=== PATIENT | male | born 1970 | race Caucasian/White ===

== ENCOUNTER → 2019-05-28 16:00 | Outpatient (BNVA) | payer MEDICARE, MEDICAID, SELFPAY | PROVIDERS: Family Provider Internal Medicine; PCP Internal Medicine; Visit Provider Internal Medicine | DX: E11.9 Type 2 diabetes mellitus without complications (principal); G62.9 Polyneuropathy, unspecified | CPT/HCPCS: 83036 ==

== ENCOUNTER → 2019-06-18 07:21 | Outpatient (BNVA) | payer MEDICARE, MEDICAID, SELFPAY | PROVIDERS: Family Provider Internal Medicine; PCP Internal Medicine; Visit Provider Nurse Practitioner | DX: F45.1 Undifferentiated somatoform disorder (principal); F70 Mild intellectual disabilities; G47.30 Sleep apnea, unspecified; F17.210 Nicotine dependence, cigarettes, uncomplicated | CPT/HCPCS: 99213 ==

== ENCOUNTER → 2019-09-23 07:31 | Outpatient (BNVA) | payer MEDICARE, MEDICAID, SELFPAY | PROVIDERS: Family Provider Internal Medicine; PCP Internal Medicine; Visit Provider Nurse Practitioner | DX: F70 Mild intellectual disabilities (principal); G47.30 Sleep apnea, unspecified; F45.1 Undifferentiated somatoform disorder | CPT/HCPCS: 99213 ==

== ENCOUNTER → 2019-09-30 08:55 | Outpatient (BNVA) | payer MEDICARE, MEDICAID, SELFPAY | PROVIDERS: Family Provider Internal Medicine; PCP Internal Medicine; Visit Provider Nurse Practitioner | DX: G43.909 Migraine, unspecified, not intractable, without status migrainosus (principal); G62.9 Polyneuropathy, unspecified; R20.0 Anesthesia of skin; R20.2 Paresthesia of skin; F17.210 Nicotine dependence, cigarettes, uncomplicated | CPT/HCPCS: 99213 ==

== ENCOUNTER → 2019-10-08 08:18 | Outpatient (BNVA) | payer MEDICARE, MEDICAID, SELFPAY | PROVIDERS: Family Provider Internal Medicine; PCP Internal Medicine; Visit Provider Specialist | DX: G62.9 Polyneuropathy, unspecified (principal); R20.0 Anesthesia of skin; R20.2 Paresthesia of skin; F17.210 Nicotine dependence, cigarettes, uncomplicated | CPT/HCPCS: 95909 ==

== ENCOUNTER → 2019-12-21 07:52 | Outpatient (BNVA) | payer MEDICARE, MEDICAID, SELFPAY | PROVIDERS: Family Provider Internal Medicine; PCP Internal Medicine; Visit Provider Nurse Practitioner | DX: F70 Mild intellectual disabilities (principal); F45.1 Undifferentiated somatoform disorder; G47.30 Sleep apnea, unspecified | CPT/HCPCS: 99213 ==

== ENCOUNTER → 2020-04-25 08:01 | Outpatient (BNVA) | payer MEDICARE, MEDICAID, SELFPAY | PROVIDERS: Family Provider Internal Medicine; PCP Internal Medicine; Visit Provider Nurse Practitioner | DX: F70 Mild intellectual disabilities (principal); F45.1 Undifferentiated somatoform disorder; G47.30 Sleep apnea, unspecified; F17.210 Nicotine dependence, cigarettes, uncomplicated | CPT/HCPCS: 99214 ==

== ENCOUNTER 2020-07-25 12:45 | Outpatient (CLI) | payer MEDICARE, MEDICAID, SELFPAY ==
--- NOTE | 2020-07-25 13:07 | MR_ITS ---
WS: [id number] MRI LUMBAR SPINE NONCONTRAST TECHNIQUE: Sagittal T1, T2 and STIR imaging. Axial T1 and T2 imaging. CLINICAL INFORMATION: THORACOLUMBAR/LUMBOSACRAL INTERVERTEBRAL DISC DISORDER COMPARISON: MRI FINDINGS: Mild lumbar curve. No acute compression. No high-grade central canal stenosis. L1-L2: Normal. L2-L3: No significant disc bulging. Mild facet arthropathy. Spinal canal and foramen are patent. L3-L4: Mild annular bulging with osteophytic ridging. Spinal canal and foramen are patent. Mild facet arthropathy. L4-L5: Mild annular bulging eccentric to the right. Mild right and no significant left foraminal narr owing. Mild facet arthropathy. Spinal canal is patent. Slight narrowing of the right subarticular rec ess. L5-S1: Tiny right pericentral protrusion. Slight contact of the right S1 nerve root without significa nt impingement. Foramen are patent. Mild facet arthropathy. Visualized pelvic bony structures: Normal. Paravertebral soft tissues: Normal. MR/MR lumbar spine wo con* [id number] IMPRESSION: 1. Mild lumbar curve. No acute compression. No high-grade central canal narrow ing. 2. Right eccentric disc bulging L4-5 with mild right L4-5 foraminal narrowing. Slight narrowing of the right subarticular recess. 3. Tiny shallow right pericentral protrusion L5-S1 slightly contacts the right S1 nerve roots. 4. Mild facet arthropathy L5-S1.
== END 2020-07-25 12:46 | disposition home or self-care (01) ==
PROVIDERS: PCP Internal Medicine; Visit Provider Internal Medicine
DX: M51.9 Unspecified thoracic, thoracolumbar and lumbosacral intervertebral disc disorder (principal); M47.817 Spondylosis without myelopathy or radiculopathy, lumbosacral region; M51.27 Other intervertebral disc displacement, lumbosacral region
CPT/HCPCS: 72148

== ENCOUNTER → 2020-11-07 16:00 | Outpatient (BNVA) | payer MEDICARE, MEDICAID, SELFPAY | PROVIDERS: PCP Internal Medicine; Visit Provider Internal Medicine | DX: E11.9 Type 2 diabetes mellitus without complications (principal); M51.9 Unspecified thoracic, thoracolumbar and lumbosacral intervertebral disc disorder; F17.210 Nicotine dependence, cigarettes, uncomplicated | CPT/HCPCS: 80053; 83036 ==

== ENCOUNTER → 2020-12-05 07:28 | Outpatient (BNVA) | payer MEDICARE, MEDICAID, SELFPAY | PROVIDERS: PCP Internal Medicine; Visit Provider Nurse Practitioner | DX: F45.1 Undifferentiated somatoform disorder (principal); F70 Mild intellectual disabilities; F17.210 Nicotine dependence, cigarettes, uncomplicated; G47.30 Sleep apnea, unspecified | CPT/HCPCS: 99214 ==

== ENCOUNTER → 2021-06-20 10:46 | Outpatient (BNVA) | payer MEDICARE, MEDICAID, SELFPAY | PROVIDERS: PCP Internal Medicine; Visit Provider Surgery | DX: L72.3 Sebaceous cyst (principal); L08.9 Local infection of the skin and subcutaneous tissue, unspecified; F17.210 Nicotine dependence, cigarettes, uncomplicated | CPT/HCPCS: 88304; 99213 ==

== ENCOUNTER → 2021-07-25 11:38 | Outpatient (BNVA) | payer MEDICARE, MEDICAID, SELFPAY | PROVIDERS: PCP Internal Medicine; Visit Provider Surgery | DX: Z09 Encounter for follow-up examination after completed treatment for conditions other than malignant neoplasm (principal) | CPT/HCPCS: 99213 ==

== ENCOUNTER 2021-10-10 10:23 | Outpatient (CLI) | payer MEDICARE, MEDICAID, SELFPAY ==
--- NOTE | 2021-10-10 10:32 | MR_ITS ---
WS: [id number] MRI CERVICAL SPINE NONCONTRAST TECHNIQUE: Sagittal T1, T2 and STIR imaging. Axial T2, gradient, and fiesta imaging. CLINICAL INFORMATION: SPINAL STENOSIS,CERVICAL REGION COMPARISON: MRI and CT FINDINGS: Straightening of the normal cervical lordosis. Cord signal is normal. No high-grade central canal liliana rowing. Slight anterolisthesis C7 on T1 similar to previous. C2-C3: Normal. C3-C4: Mild disc osteophytic ridging. Moderate LEFT and no significant RIGHT bony foraminal narrowing . Mild central canal stenosis. C4-C5: Disc osteophyte complex with endplate ridging. Moderate LEFT and no significant RIGHT bony for aminal narrowing. Mild facet arthropathy. C5-C6: Disc osteophytic ridging eccentric to the RIGHT. Moderate RIGHT and mild LEFT bony foraminal n arrowing. Moderate facet arthropathy. Mild central canal stenosis. C6-C7: Disc osteophytic ridging eccentric to the LEFT. Severe LEFT bony foraminal narrowing. Mild RIG HT bony foraminal narrowing. Spinal canal is patent. C7-T1: Grade 1 anterolisthesis. Mild LEFT and no significant RIGHT foraminal narrowing. Spinal canal is patent. Small retention cyst or polyp LEFT maxillary sinus measuring 10 mm. Visualized brain stem structures: Normal. Prevertebral soft tissues: Normal. MR/MR cervical spin wo con* [id number] IMPRESSION: 1. Straightening of the normal cervical lordosis with progressed spondylitic c hanges compared to 2016. 2. Mild central canal stenosis C3-C4 C4-C5 and C5-C6 due to disc osteophyte co mplex 3. Moderate LEFT C3-C4 bony foraminal narrowing. 4. Moderate LEFT C4-C5 bony foraminal narrowing. 5. Moderate RIGHT C5-C6 bony foraminal narrowing. 6. Severe LEFT C6-C7 bony foraminal narrowing.
--- NOTE | 2021-10-10 10:32 | XR_ITS ---
WS: [id number] Exam: XR cervical spine fl/ex [id number] Date/Time of Exam: 10/10/2021 10:35 AM Reason For Exam: SPINAL STENOSIS,CERVICAL REGION Comparison 01/10/2016. No fracture or dislocation. No significant flexion or extension instability. Degenerative disc narrow ing at C6-7 and C7-T1 with mild spondylosis. Normal paraspinal soft tissues. There is some straighten ing of the lower C-spine. XR/XR cervical spine fl/ex [id number] IMPRESSION: 1. No sign of flexion or extension instability. 2. Mild degenerative changes of the lower C-spine as detailed above.
== END 2021-10-10 10:24 | disposition home or self-care (01) ==
PROVIDERS: PCP Internal Medicine; Visit Provider Anesthesiology Pain Medicine
DX: M48.02 Spinal stenosis, cervical region (principal); M25.78 Osteophyte, vertebrae
CPT/HCPCS: 72040; 72141

== ENCOUNTER → 2021-10-11 16:21 | Outpatient (BNVA) | payer MEDICARE, MEDICAID, SELFPAY | PROVIDERS: PCP Internal Medicine; Visit Provider Internal Medicine | DX: E11.9 Type 2 diabetes mellitus without complications (principal); G47.30 Sleep apnea, unspecified; F17.210 Nicotine dependence, cigarettes, uncomplicated | CPT/HCPCS: 80053; 83036; 84443; 85025 ==

== ENCOUNTER → 2021-10-24 11:23 | Outpatient (BNVA) | payer MEDICARE, MEDICAID, SELFPAY | PROVIDERS: PCP Internal Medicine; Visit Provider Surgery | DX: Z51.89 Encounter for other specified aftercare (principal) | CPT/HCPCS: 99213 ==

== ENCOUNTER → 2021-10-26 10:16 | Outpatient (BNVA) | payer MEDICARE, MEDICAID, SELFPAY | PROVIDERS: PCP Internal Medicine; Referring Provider Anesthesiology Pain Medicine; Visit Provider Physician Assistant | DX: M47.22 Other spondylosis with radiculopathy, cervical region; M50.30 Other cervical disc degeneration, unspecified cervical region | CPT/HCPCS: 72040; 99203; 99204 ==

== ENCOUNTER → 2021-11-02 08:31 | Outpatient (BNVA) | payer MEDICARE, MEDICAID, SELFPAY | PROVIDERS: PCP Internal Medicine; Visit Provider Podiatrist Foot & Ankle Surgery | DX: L60.0 Ingrowing nail (principal); E11.42 Type 2 diabetes mellitus with diabetic polyneuropathy; L60.3 Nail dystrophy; M21.41 Flat foot [pes planus] (acquired), right foot; M21.42 Flat foot [pes planus] (acquired), left foot; M20.41 Other hammer toe(s) (acquired), right foot; M20.42 Other hammer toe(s) (acquired), left foot; Z79.84 Long term (current) use of oral hypoglycemic drugs; Z79.4 Long term (current) use of insulin | CPT/HCPCS: 99203; 99204 ==

== ENCOUNTER → 2021-11-22 09:23 | Outpatient (BNVA) | payer MEDICARE, MEDICAID, SELFPAY | PROVIDERS: PCP Internal Medicine; Visit Provider Anesthesiology Pain Medicine | DX: M47.22 Other spondylosis with radiculopathy, cervical region (principal); M50.30 Other cervical disc degeneration, unspecified cervical region; M47.812 Spondylosis without myelopathy or radiculopathy, cervical region; M79.601 Pain in right arm; M79.602 Pain in left arm; F17.210 Nicotine dependence, cigarettes, uncomplicated | CPT/HCPCS: 99204 ==

== ENCOUNTER → 2021-12-11 13:20 | Outpatient (BNVA) | payer MEDICARE, MEDICAID, SELFPAY | PROVIDERS: PCP Internal Medicine; Visit Provider Anesthesiology Pain Medicine | DX: M47.816 Spondylosis without myelopathy or radiculopathy, lumbar region (principal); M47.812 Spondylosis without myelopathy or radiculopathy, cervical region; F17.210 Nicotine dependence, cigarettes, uncomplicated | CPT/HCPCS: 64490; 64491; 64492; J3490 ==

== ENCOUNTER → 2021-12-25 12:57 | Outpatient (BNVA) | payer MEDICARE, MEDICAID, SELFPAY | PROVIDERS: PCP Internal Medicine; Visit Provider Anesthesiology Pain Medicine | DX: M47.812 Spondylosis without myelopathy or radiculopathy, cervical region (principal); F17.210 Nicotine dependence, cigarettes, uncomplicated | CPT/HCPCS: 64490; 64491; 64492; J3490 ==

== ENCOUNTER → 2022-01-09 10:49 | Outpatient (BNVA) | payer MEDICARE, MEDICAID, SELFPAY | PROVIDERS: PCP Internal Medicine; Visit Provider Anesthesiology Pain Medicine | DX: G89.29 Other chronic pain (principal); M54.50 Low back pain, unspecified; M47.22 Other spondylosis with radiculopathy, cervical region; M50.30 Other cervical disc degeneration, unspecified cervical region; M47.812 Spondylosis without myelopathy or radiculopathy, cervical region; M79.601 Pain in right arm; M79.602 Pain in left arm; F17.210 Nicotine dependence, cigarettes, uncomplicated | CPT/HCPCS: 99214 ==

== ENCOUNTER → 2022-02-26 14:14 | Outpatient (BNVA) | payer MEDICARE, MEDICAID, SELFPAY | PROVIDERS: PCP Internal Medicine; Visit Provider Anesthesiology Pain Medicine | DX: M47.812 Spondylosis without myelopathy or radiculopathy, cervical region (principal) | CPT/HCPCS: 64633; 64634; J1030 ==

== ENCOUNTER → 2022-03-21 09:34 | Outpatient (BNVA) | payer MEDICARE, MEDICAID, SELFPAY | PROVIDERS: PCP Internal Medicine; Visit Provider Anesthesiology Pain Medicine | DX: M47.22 Other spondylosis with radiculopathy, cervical region (principal); M50.30 Other cervical disc degeneration, unspecified cervical region; M47.812 Spondylosis without myelopathy or radiculopathy, cervical region; M79.601 Pain in right arm; M79.602 Pain in left arm | CPT/HCPCS: 99214 ==

== ENCOUNTER → 2022-04-23 13:02 | Outpatient (BNVA) | payer MEDICARE, MEDICAID, SELFPAY | PROVIDERS: PCP Internal Medicine; Visit Provider Anesthesiology Pain Medicine | DX: M54.12 Radiculopathy, cervical region (principal); M47.812 Spondylosis without myelopathy or radiculopathy, cervical region | CPT/HCPCS: 64633; 64634; J1030 ==

== ENCOUNTER → 2022-05-02 15:44 | Outpatient (BNVA) | payer MEDICARE, MEDICAID, SELFPAY | PROVIDERS: PCP Family Medicine; Visit Provider Family Medicine | DX: E11.9 Type 2 diabetes mellitus without complications (principal); G62.9 Polyneuropathy, unspecified; F32.9 Major depressive disorder, single episode, unspecified; F10.20 Alcohol dependence, uncomplicated; F17.200 Nicotine dependence, unspecified, uncomplicated; Z71.6 Tobacco abuse counseling; R03.0 Elevated blood-pressure reading, without diagnosis of hypertension | CPT/HCPCS: 80053; 83036; 85025 ==

== ENCOUNTER 2022-05-08 11:04 | Outpatient (CLI) | payer MEDICARE, MEDICAID, SELFPAY ==
[2022-05-08 12:03] LABS: Estmated Average Glucose 146; Hemoglobin A1C 6.7 % (4.0-6.0)
== END 2022-05-08 11:05 | disposition home or self-care (01) ==
LOC: LAB 11:08
PROVIDERS: PCP Family Medicine; Visit Provider Family Medicine
DX: E11.9 Type 2 diabetes mellitus without complications (principal); M47.22 Other spondylosis with radiculopathy, cervical region; M50.30 Other cervical disc degeneration, unspecified cervical region; M47.812 Spondylosis without myelopathy or radiculopathy, cervical region; M77.12 Lateral epicondylitis, left elbow
CPT/HCPCS: 36415; 83036; 99214

== ENCOUNTER → 2022-08-07 11:16 | Outpatient (BNVA) | payer MEDICARE, MEDICAID, SELFPAY | PROVIDERS: PCP Family Medicine; Visit Provider Anesthesiology Pain Medicine | DX: M51.9 Unspecified thoracic, thoracolumbar and lumbosacral intervertebral disc disorder (principal); M47.896 Other spondylosis, lumbar region; M54.9 Dorsalgia, unspecified; G89.29 Other chronic pain | CPT/HCPCS: 72110; 99214 ==

== ENCOUNTER → 2022-08-22 14:04 | Outpatient (BNVA) | payer MEDICARE, MEDICAID, SELFPAY | PROVIDERS: PCP Family Medicine; Visit Provider Anesthesiology Pain Medicine | DX: G89.29 Other chronic pain (principal); M47.816 Spondylosis without myelopathy or radiculopathy, lumbar region | CPT/HCPCS: 36416; 64493; 64494; 64495; 82962; J3490 ==

== ENCOUNTER → 2022-09-12 13:39 | Outpatient (BNVA) | payer MEDICARE, MEDICAID, SELFPAY | PROVIDERS: PCP Family Medicine; Visit Provider Anesthesiology Pain Medicine | DX: G89.29 Other chronic pain (principal); M47.816 Spondylosis without myelopathy or radiculopathy, lumbar region | CPT/HCPCS: 64493; 64494; 64495; J3490 ==

== ENCOUNTER → 2022-10-01 10:47 | Outpatient (BNVA) | payer MEDICARE, MEDICAID, SELFPAY | PROVIDERS: PCP Family Medicine; Visit Provider Anesthesiology Pain Medicine | DX: G89.29 Other chronic pain (principal); M48.061 Spinal stenosis, lumbar region without neurogenic claudication; M47.817 Spondylosis without myelopathy or radiculopathy, lumbosacral region | CPT/HCPCS: 99214 ==

== ENCOUNTER → 2022-11-15 10:24 | Outpatient (BNVA) | payer MEDICARE, MEDICAID, SELFPAY | PROVIDERS: PCP Family Medicine; Visit Provider Anesthesiology Pain Medicine | DX: G89.29 Other chronic pain; M54.50 Low back pain, unspecified | CPT/HCPCS: 99213 ==

== ENCOUNTER → 2023-01-30 15:12 | Outpatient (BNVA) | payer MEDICARE, MEDICAID, SELFPAY | PROVIDERS: PCP Family Medicine; Referring Provider Family Medicine; Visit Provider Surgery | DX: K61.0 Anal abscess (principal) | CPT/HCPCS: 99204; 99214 ==

== ENCOUNTER → 2023-03-20 13:02 | Outpatient (BNVA) | payer MEDICARE, MEDICAID, SELFPAY | PROVIDERS: PCP Family Medicine; Visit Provider Surgery | DX: K60.3 Anal fistula | CPT/HCPCS: 99214 ==

== ENCOUNTER → 2023-03-22 15:28 | Outpatient (BNVA) | payer MEDICARE, MEDICAID, SELFPAY | PROVIDERS: PCP Family Medicine; Visit Provider Family Medicine | DX: R21 Rash and other nonspecific skin eruption (principal); E11.9 Type 2 diabetes mellitus without complications | CPT/HCPCS: 80053; 83036; 85025 ==

== ENCOUNTER → 2023-03-27 09:10 | Outpatient (BNVA) | payer MEDICARE, MEDICAID, SELFPAY | PROVIDERS: PCP Family Medicine; Visit Provider Anesthesiology Pain Medicine | DX: M54.9 Dorsalgia, unspecified (principal); G89.29 Other chronic pain; M54.2 Cervicalgia | CPT/HCPCS: 99214 ==

== ENCOUNTER 2023-04-01 08:21 | Day surgery (SDC) | payer MEDICARE, MEDICAID, SELFPAY ==
[2023-04-01] VITALS (10 sets, daily range): BP systolic 125–171; BP diastolic 78–110; PULSE 78–99; RESP 16–18; TEMP 36.1–36.8; O2SAT 92–97; BMI 32.9
--- NOTE | 2023-04-01 09:03 | W.PM.OPSUD ---
Surgery/Procedure H&P Update DATE OF PROCEDURE: April 01, 2023 DATE H&P PERFORMED: 03/20/23 H&P UPDATE INFORMATION: I have reviewed H&P completed within last 30 days, I have examined patient prior to procedure and No changes to prior documentation PLANNED PROCEDURE: Operation Date: 04/01/23 10:05 Proposed Procedures p [id number] exam under anesth poss fistula K61.0(Not Applicable) - DO reed Simpson poss fistula(Not Applicable) - Sher Steen DO
[2023-04-01 09:06] LABS: Glucose Point of Care 158 mg/dL (70-110)
[2023-04-01] MEDS: sodium chloride 0.9% 1,000 ML 30 ML IV (09:11)
--- NOTE | 2023-04-01 10:07 | ANES.PREANE2 ---
Pre-Anesthetic Assessment Height/Weight: Height 1.96 m Weight 126 kg Temp Pulse Resp BP Pulse Ox O2 Del Method 98.2 F 88 16 133/91 96 Room Air 04/01/23 08:40 04/01/23 08:40 04/01/23 08:40 04/01/23 08:40 04/01/23 08:40 04/01/23 08:41 Operation Date: 04/01/23 10:05 Proposed Procedures p [id number] exam under anesth poss fistula K61.0(Not Applicable) - Sher Steen DO s poss fistula(Not Applicable) - Sher Steen DO Familial anesthetic complications: None Was Beta Sharif taken within 24 hours: Yes Was Clonidine taken within 24 hours: N/A Last intake: Intake Last Liquid Date 03/31/23 Last Liquid Time 21:00 Last Solid Date 03/31/23 Last Solid Time 20:00 Social Tobacco and No alcohol Exam alert, oriented x 3, clear to auscultation bilaterally and regular rate & rhythm Airway Mallampati: Class III Dentition: chipped and other (multiple missing) Pulmonary Sleep Apnea CV/HEM Hypertension Metabolic Diabetes Mellitus and Hyperlipidemia Anesthetic Plan ASA status: 3 Anesthesia: General Risk of > 500 ml blood loss (7ml/kg in children): No Medications/Allergies Home Medications Medication Instructions Recorded Confirmed Last Taken Type gabapentin 800 mg tablet 800 mg PO TID #300 tabs 01/18/22 03/29/23 03/31/23 Rx sumatriptan succinate 100 mg 100 mg PO ONCE PRN migraine 02/28/22 03/29/23 Unknown Rx tablet (Imitrex) headache #20 tabs pen needle, diabetic 31 gauge x #100 ea 05/10/22 03/27/23 Unknown Rx 5/32 Diabetic Shoes with 3 Pairs of #1 ea 05/31/22 03/27/23 Unknown Rx Inserts metformin 750 mg tablet,extended 2,250 mg (3 x 750 mg) PO DAILY 06/18/22 03/29/23 03/31/23 Rx release 24 hr #270 tabs amitriptyline 50 mg tablet 50 mg PO DAILY #90 tabs 02/15/23 03/29/23 03/31/23 Rx duloxetine 60 mg capsule,delayed 60 mg PO BID #180 caps 02/15/23 03/29/23 03/31/23 Rx release (Cymbalta) insulin degludec 200 unit/mL (3 40 unit (0.2 mL) SUBCUT QDAY #3 mL 02/19/23 03/29/23 03/31/23 Rx mL) subcutaneous pen (Tresiba FlexTouch U-200 insulin) propranolol 40 mg tablet 40 mg PO BID #60 tabs 03/15/23 03/29/23 03/31/23 Rx CPAP 14 setting #1 ea 03/21/23 03/27/23 Unknown Rx CPAP mask, tubing, supplies #1 ea 03/21/23 03/27/23 Unknown Rx fluconazole 150 mg tablet 150 mg PO DAILY #14 tabs 03/22/23 03/29/23 03/31/23 Rx hydrocortisone 1 % topical cream 1 applic topical TID PRN skin 03/22/23 03/29/23 03/30/23 Rx irritation #454 grams glipizide 10 mg tablet 10 mg PO DAILY #60 tabs 03/25/23 03/29/23 03/31/23 Rx rosuvastatin 10 mg tablet 10 mg PO QPM 03/29/23 03/29/23 03/31/23 History Allergies Allergy/AdvReac Type Severity Reaction Status Date / Time prednisone Allergy ALGY-Rash Verified 03/27/23 09:24 Current Medications Generic Name Dose Route Start Last Admin Trade Name Freq PRN Reason Stop Dose Admin Sodium Chloride 1,000 mls @ 30 mls/hr 04/01/23 08:30 04/01/23 09:11 Sodium Chloride 0.9% IV 04/02/23 08:29 30 mls/hr .Q24H GALILEA Administration PFSH Anesthesia Medical History Major depressive disorder, recurrent, mild Psychiatric care Chronic migraine Sleep apnea, unspecified Mild intellectual disabilities Undifferentiated somatoform disorder Diabetes mellitus Neuropathy Surgical History Status post epidural steroid injection History of removal of cyst History of colonoscopy with polypectomy 2016 Family History Father CAD (coronary artery disease) Mother Clotting disorder Other Chronic kidney disease (CKD) Dementia Diabetes Hyperlipidemia Hypertension Lung disease Psychiatric illness Denies family history of Anesthesia complication Bleeding disorder Cancer Stroke Social History Smoking and tobacco/nicotine status: current every day tobacco/nicotine user cigarettes Packs smoked per day: 1 [ Other cigarette details: 1 PPD, 3/4PPD on avg, 35PY] Alcohol intake: current Alcohol intake frequency: few times a week Alcohol type: beer Substance/Drug Use: never Lives independently: Yes Marital status: Single Number of children: 0 Current occupational status: disabled Current gender identity: Male Data Anesthesia Cardiac Studies: No Data to Display
[2023-04-01] MEDS: ceFAZolin 2,000 MG in sodium chloride 0.9% (plus) 50 ML 100 MG IV (10:36)
[2023-04-01] MEDS: lidocaine-epi 2% 20 mL INJ INJECTION (11:10)
[2023-04-01] MEDS: thrombin 5,000 unit SDV 5000 UNIT XX (11:15)
--- NOTE | 2023-04-01 11:28 | PM.OP ---
Operative Report Date of procedure: April 01, 2023 Pre-op diagnosis: Rectal abscess Perianal fistula Post-op diagnosis: same Procedure done: Exam under anesthesia Fistulotomy Implants: Thrombin-soaked Gelfoam into the anus Specimens removed/disposition: None Surgeon: Sher Steen DO Estimated blood loss (mL): 5 Complications: None apparent Brief History: This very pleasant 52-year-old gentleman with a history of perirectal abscess. A perirectal fistula was identified on physical exam after the perirectal abscess healed. Exam under esthesia with possible fistulotomy was indicated. Risks and benefits, including but limited to, scar, numbness, pain, bleeding, infection, damage to surrounding structures, incontinence of flatus and/or stool, recurrence, were explained to the patient. He was understanding the risks and wished to proceed. Procedure: Patient was on the operating room placed on the hospital bed in the supine position. General endotracheal intubation was achieved by department anesthesia. The patient was then put into the prone jackknife position on the OR table. A timeout was performed. All present were in agreement. The endoscope was placed into the anus after lubricating and there was a fistula opening in the left anterior position. I placed a lacrimal probe through the fistula opening and found the internal opening at the dentate line. The fistula did not go through the sphincter muscles. 2% lidocaine with epinephrine was used to anesthetize the anoderm overlying the lacrimal probe. Bovie was used and cut mode to cut down through the anal Derm down to the lacrimal probe. Electrocautery was then used for hemostasis. Pressure was held for 2 minutes and then thrombin-soaked Gelfoam was placed into the anus. A sterile bandage was applied. Patient tolerated procedure well.
[2023-04-01] MEDS: labetalol 5 mg/mL SDV 20mL 10 MG IVP (11:30)
--- NOTE | 2023-04-01 12:55 | ANE.PACU2 ---
Inpatient post-anesthesia follow up: Airway intact: Yes Vital signs: Temperature 97.9 F Pulse Rate 78 Respiratory Rate 16 Blood Pressure 134/78 Pulse Oximetry 96 Oxygen Delivery Me thod Room Air Oxygen Flow Rate 8 Fraction of Inspir ed Oxygen Hydration adequate: Yes Nausea and vomiting: No Pain level: 1 Mental status: Baseline
== END 2023-04-01 12:55 | disposition home or self-care (01) ==
PROVIDERS: PCP Family Medicine; Visit Provider Surgery
PROC: (CPT 46270; principal; 2023-04-01 09:55)
PROC: (CPT 46270; 2023-04-01 09:55)
DX: K61.1 Rectal abscess (principal); G47.30 Sleep apnea, unspecified; I10 Essential (primary) hypertension; E11.40 Type 2 diabetes mellitus with diabetic neuropathy, unspecified; Z79.4 Long term (current) use of insulin; E78.5 Hyperlipidemia, unspecified; Z79.84 Long term (current) use of oral hypoglycemic drugs; F17.210 Nicotine dependence, cigarettes, uncomplicated
CPT/HCPCS: 46270; 36416; 82962; J0330; J0690; J2405; J2704; J2710; J3010; J3490; J7030

== ENCOUNTER → 2023-04-17 13:18 | Outpatient (BNVA) | payer MEDICARE, MEDICAID, SELFPAY | PROVIDERS: PCP Family Medicine; Visit Provider Surgery | DX: K60.3 Anal fistula (principal) | CPT/HCPCS: 99024 ==

== ENCOUNTER → 2023-06-03 09:15 | Outpatient (BNVA) | payer MEDICARE, MEDICAID, SELFPAY | PROVIDERS: PCP Family Medicine; Visit Provider Anesthesiology Pain Medicine | DX: M54.2 Cervicalgia (principal); G89.29 Other chronic pain; M47.816 Spondylosis without myelopathy or radiculopathy, lumbar region | CPT/HCPCS: 99214 ==

== ENCOUNTER → 2023-06-21 15:49 | Outpatient (BNVA) | payer MEDICARE, MEDICAID, SELFPAY | PROVIDERS: PCP Family Medicine; Visit Provider Family Medicine | DX: I10 Essential (primary) hypertension (principal); E11.9 Type 2 diabetes mellitus without complications | CPT/HCPCS: 83036 ==

== ENCOUNTER → 2023-07-15 09:10 | Outpatient (BNVA) | payer MEDICARE, MEDICAID, SELFPAY | PROVIDERS: PCP Family Medicine; Visit Provider Anesthesiology Pain Medicine | DX: G89.29 Other chronic pain; M54.2 Cervicalgia; M47.816 Spondylosis without myelopathy or radiculopathy, lumbar region | CPT/HCPCS: 99214 ==

== ENCOUNTER → 2023-08-13 13:01 | Outpatient (BNVA) | payer MEDICARE, MEDICAID, SELFPAY | PROVIDERS: PCP Family Medicine; Visit Provider Anesthesiology Pain Medicine | DX: M47.816 Spondylosis without myelopathy or radiculopathy, lumbar region (principal); G89.29 Other chronic pain | CPT/HCPCS: 64493; 64494; 64495; J3490 ==

== ENCOUNTER → 2023-08-22 10:00 | Outpatient (BNVA) | payer MEDICARE, MEDICAID, SELFPAY | PROVIDERS: PCP Family Medicine; Visit Provider Anesthesiology Pain Medicine | DX: G89.29 Other chronic pain; M54.2 Cervicalgia; M47.816 Spondylosis without myelopathy or radiculopathy, lumbar region | CPT/HCPCS: 99214 ==

== ENCOUNTER → 2023-11-27 14:44 | Outpatient (BNVA) | payer MEDICARE, MEDICAID, SELFPAY | PROVIDERS: PCP Family Medicine; Referring Provider Family Medicine; Visit Provider Nurse Practitioner Family | DX: L57.8 Other skin changes due to chronic exposure to nonionizing radiation (principal); L81.4 Other melanin hyperpigmentation; L82.1 Other seborrheic keratosis; D23.71 Other benign neoplasm of skin of right lower limb, including hip; L91.8 Other hypertrophic disorders of the skin; L73.8 Other specified follicular disorders; D22.5 Melanocytic nevi of trunk | CPT/HCPCS: 17110; 99203 ==

== ENCOUNTER → 2024-04-01 10:40 | Outpatient (BNVA) | payer MEDICARE, MEDICAID, SELFPAY | PROVIDERS: PCP Family Medicine; Visit Provider Anesthesiology Pain Medicine | DX: G89.29 Other chronic pain; M54.2 Cervicalgia; M47.816 Spondylosis without myelopathy or radiculopathy, lumbar region | CPT/HCPCS: 99214 ==

== ENCOUNTER → 2024-04-16 14:19 | Outpatient (BNVA) | payer MEDICARE, MEDICAID, SELFPAY | PROVIDERS: PCP Family Medicine; Visit Provider Family Medicine | DX: E11.9 Type 2 diabetes mellitus without complications (principal); N40.0 Benign prostatic hyperplasia without lower urinary tract symptoms; F32.9 Major depressive disorder, single episode, unspecified; M54.9 Dorsalgia, unspecified; G89.29 Other chronic pain; I10 Essential (primary) hypertension | CPT/HCPCS: 80053; 83036; 84153; 85025 ==

== ENCOUNTER → 2024-04-28 08:40 | Outpatient (BNVA) | payer MEDICARE, MEDICAID, SELFPAY | PROVIDERS: PCP Family Medicine; Visit Provider Anesthesiology Pain Medicine | DX: M47.816 Spondylosis without myelopathy or radiculopathy, lumbar region (principal); M79.18 Myalgia, other site; G89.29 Other chronic pain; M54.2 Cervicalgia | CPT/HCPCS: 20553; 99214; J1010; J3490 ==

== ENCOUNTER → 2024-05-18 08:49 | Outpatient (BNVA) | payer MEDICARE, MEDICAID, SELFPAY | PROVIDERS: PCP Family Medicine; Visit Provider Surgery | DX: K21.9 Gastro-esophageal reflux disease without esophagitis (principal); Z86.0100 Personal history of colon polyps, unspecified; Z87.11 Personal history of peptic ulcer disease; M47.816 Spondylosis without myelopathy or radiculopathy, lumbar region; G89.29 Other chronic pain; M54.2 Cervicalgia | CPT/HCPCS: 72110; 99214 ==

== ENCOUNTER → 2024-07-06 10:52 | Outpatient (BNVA) | payer MEDICARE, MEDICAID, OTHER, SELFPAY | PROVIDERS: PCP Family Medicine; Visit Provider Anesthesiology Pain Medicine | DX: M79.18 Myalgia, other site (principal); M54.9 Dorsalgia, unspecified; G89.29 Other chronic pain; M54.2 Cervicalgia; M47.816 Spondylosis without myelopathy or radiculopathy, lumbar region; F17.210 Nicotine dependence, cigarettes, uncomplicated | CPT/HCPCS: 20553; 99214; J1010; J3490 ==

== ENCOUNTER → 2024-08-05 14:26 | Outpatient (BNVA) | payer MEDICARE, MEDICAID, SELFPAY | PROVIDERS: PCP Family Medicine; Visit Provider Anesthesiology Pain Medicine | DX: M47.816 Spondylosis without myelopathy or radiculopathy, lumbar region (principal); M54.9 Dorsalgia, unspecified; G89.29 Other chronic pain; E11.9 Type 2 diabetes mellitus without complications; Z01.818 Encounter for other preprocedural examination | CPT/HCPCS: 36416; 64635; 64636; 82962; J9999 ==

== ENCOUNTER → 2024-08-25 14:17 | Outpatient (BNVA) | payer MEDICARE, MEDICAID, SELFPAY | PROVIDERS: PCP Family Medicine; Visit Provider Anesthesiology Pain Medicine | DX: M47.816 Spondylosis without myelopathy or radiculopathy, lumbar region (principal); Z01.818 Encounter for other preprocedural examination; E11.9 Type 2 diabetes mellitus without complications; M54.9 Dorsalgia, unspecified; G89.29 Other chronic pain | CPT/HCPCS: 36416; 64635; 64636; 82962; J1100; J9999 ==

== ENCOUNTER → 2024-09-15 10:56 | Outpatient (BNVA) | payer MEDICARE, MEDICAID, SELFPAY | PROVIDERS: PCP Family Medicine; Visit Provider Anesthesiology Pain Medicine | DX: M54.9 Dorsalgia, unspecified (principal); G89.29 Other chronic pain; M54.2 Cervicalgia; M47.816 Spondylosis without myelopathy or radiculopathy, lumbar region | CPT/HCPCS: 99214 ==

== ENCOUNTER → 2024-10-08 13:01 | Outpatient (BNVA) | payer MEDICARE, MEDICAID, SELFPAY | PROVIDERS: PCP Family Medicine; Visit Provider Student in an Organized Health Care Education/Training Program | DX: K60.30 Anal fistula, unspecified (principal); R12 Heartburn | CPT/HCPCS: 99204 ==

== ENCOUNTER 2024-10-28 09:31 | Day surgery (SDC) | payer MEDICARE, MEDICAID, SELFPAY ==
[2024-10-28] VITALS (10 sets, daily range): BP systolic 108–151; BP diastolic 66–99; PULSE 89–100; RESP 16–19; TEMP 36.2–36.9; O2SAT 91–96; BMI 31.8
--- NOTE | 2024-10-28 09:29 | W.PM.OPSUD ---
Surgery/Procedure H&P Update DATE OF PROCEDURE: October 28, 2024 DATE H&P PERFORMED: 10/08/24 H&P UPDATE INFORMATION: I have reviewed H&P completed within last 30 days, I have examined patient prior to procedure and No changes to prior documentation PLANNED PROCEDURE: Operation Date: 10/28/24 12:05 Proposed Procedures p Rectal Exam Under Anesthesia 36304 [id number] 00165 K60.3(Not Applicable) - Bill Hdez MD s POSSIBLE Incision And Drainage I&D(Not Applicable) - Bill Hdez MD s POSSIBLE Seton Placement(Not Applicable) - Bill Hdez MD
--- NOTE | 2024-10-28 09:42 | ANES.PREANE2 ---
Pre-Anesthetic Assessment Height/Weight: Height 6 ft 6 in Preop Diagnosis: Rectal fistula Operation Date: 10/28/24 12:05 Proposed Procedures p Rectal Exam Under Anesthesia 11138 [id number] 09279 K60.3(Not Applicable) - Bill Hdez MD s POSSIBLE Incision And Drainage I&D(Not Applicable) - Bill Hdez MD s POSSIBLE Seton Placement(Not Applicable) - Bill Hdez MD Was Beta Sharif taken within 24 hours: Yes Was Clonidine taken within 24 hours: N/A Social Alcohol and Tobacco Patient states that he drinks at least 15 beers a day on the week Exam alert, oriented x 3, clear to auscultation bilaterally and regular rate & rhythm Airway Submandibular: within normal limits Cervical ROM: within normal limits Mallampati: Class II Comments: Comments: No upper teeth, few bottom teeth. Denies any loose Anesthetic Plan ASA status: 4 Anesthesia: General Other: No prior issues with anesthesia NPO since yesterday evening History of JOSY. States he occasionally wears CPAP Type 2 diabetes, on insulin Chronic alcohol use Hypertension on losartan and propranolol Current smoker Plan for general anesthesia Medications/Allergies Home Medications ?Medication ?Instructions ?Recorded ?Confirmed ?Last Taken ?Type sumatriptan succinate 100 mg 100 mg PO ONCE PRN migraine 02/28/22 10/27/24 Unknown Rx tablet (Imitrex) headache #20 tabs CPAP 14 setting #1 ea 03/21/23 10/08/24 Unknown Rx CPAP mask, tubing, supplies #1 ea 03/21/23 10/08/24 Unknown Rx pen needle, diabetic 31 gauge x #100 ea 05/24/23 10/08/24 Unknown Rx 5/16 (TechLITE Pen Needle) rosuvastatin 10 mg tablet 10 mg PO QPM #90 tabs 04/16/24 10/27/24 10/27/24 Rx insulin glargine 100 unit/mL 35 unit (0.35 mL) SUBCUT DAILY #10 04/17/24 10/27/24 10/27/24 Rx subcutaneous solution (Lantus mL U-100 Insulin) metformin 500 mg tablet,extended 1,000 mg (2 x 500 mg) PO BID #180 08/18/24 10/27/24 10/27/24 Rx release 24 hr tabs gabapentin 800 mg tablet 800 mg PO TID #300 tabs 09/14/24 10/27/24 10/27/24 Rx propranolol 40 mg tablet 40 mg PO BID #180 tabs 09/22/24 10/27/24 10/27/24 Rx amitriptyline 50 mg tablet 50 mg PO DAILY #90 tabs 09/23/24 10/27/24 10/27/24 Rx losartan 50 mg tablet 50 mg PO DAILY #90 tabs 10/26/24 10/27/24 10/27/24 Rx duloxetine 60 mg capsule,delayed 60 mg PO BEDTIME 10/27/24 10/27/24 10/27/24 History release glipizide 10 mg tablet 10 mg PO DAILY 10/27/24 10/27/24 10/27/24 History Allergies Allergy/AdvReac Type Severity Reaction Status Date / Time prednisone Allergy ALGY-Rash Verified 10/08/24 13:03 [facility] Anesthesia Medical History (Updated 10/08/24 @ 13:56 by Bill Hdez MD) History of colon polyps Essential (primary) hypertension Major depressive disorder, recurrent, mild Psychiatric care Chronic migraine Sleep apnea, unspecified Mild intellectual disabilities Undifferentiated somatoform disorder Diabetes mellitus Neuropathy Surgical History Status post epidural steroid injection History of removal of cyst History of colonoscopy with polypectomy 2016 Family History Father CAD (coronary artery disease) Mother Clotting disorder Other Chronic kidney disease (CKD) Dementia Diabetes Hyperlipidemia Hypertension Lung disease Psychiatric illness Denies family history of Anesthesia complication Bleeding disorder Cancer Stroke Social History Smoking and tobacco/nicotine status: current every day tobacco/nicotine user cigarettes Packs smoked per day: 1 [ Other cigarette details: 1 PPD, 3/4PPD on avg, 35PY] Alcohol intake: current Alcohol intake frequency: few times a week Alcohol type: beer Substance/Drug Use: never Lives independently: Yes Marital status: Single Number of children: 0 Current occupational status: disabled Current gender identity: Male
--- NOTE | 2024-10-28 10:45 | P.OP_ITS ---
Operative Report Date of procedure: October 28, 2024 Pre-op diagnosis: Perianal abscess Post-op diagnosis: same Post-op findings: Perianal abscess. Send cultures. Abscess cavity 4 x 2 x 2 cm. Adequate hemostasis achieved with electrocautery. Packed wound with half-inch iodoform. On inspection of the rectum no fistula in ano encountered. Specimens removed/disposition: Culture sent to microbiology Pathology: none sent Pathology: N/A Surgeon: Bill Hdez MD Head Track Coach: N/A Anesthesia: General Estimated blood loss (mL): 20 Complications: N/A Findings: Perianal abscess. Send cultures. Abscess cavity 4 x 2 x 2 cm. Adequate hemostasis achieved with electrocautery. Packed wound with half-inch iodoform. On inspection of the rectum no fistula in ano encountered. Condition: stable Disposition: same day Brief History: 54-year-old male who presented with a perianal abscess. Discussed risk and benefits and patient agreed to proceed with exam under anesthesia of the rectum, possible incision and drainage of abscess, possible seton placement. Procedure: Consent obtained in the preop area. Patient brought into the operating room. SCDs on and working. General anesthesia induced. Patient placed in left lateral decubitus. Upper and lower extremities padded. Perineum prepped and dr aped in the usual sterile fashion. Encounter performed with fluctuance near posterior midline 11 o'clock. Used a scalpel to perform a cruciate incision. 5 cc of purulent fluid obtained. Cultures taken. Abscess cavity measured 4 x 2 x 2 cm. Adequate hemostasis achieved using electrocautery. CHITO unremarkable. A lubricated Quintana retractor was placed in the rectum. On examination of the rectum using a probe through the abscess cavity, I did not find a fistula in ano. The abscess cavity was irrigated with normal saline. Adequate hemostasis confirmed. Abscess cavity packed with half-inch iodophor. Fluffs applied. Mesh panties used. Patient woke up from anesthesia without any complications.
[2024-10-28] MEDS: lidocaine-epi 1% 20 mL INJ 10 ML INJECTION (11:06)
[2024-10-28] MEDS: BUPivacaine 0.25% INJ 10 mL INJECTION (11:06)
--- NOTE | 2024-10-28 12:06 | ANE.PACU2 ---
Inpatient post-anesthesia follow up: Airway intact: Yes Vital signs: Temperature 97.8 F Pulse Rate 94 Respiratory Rate 18 Blood Pressure 131/84 Pulse Oximetry 96 Oxygen Delivery Me thod Room Air Oxygen Flow Rate Fraction of Inspir ed Oxygen Hydration adequate: Yes Nausea and vomiting: No Pain level: 1 Mental status: Baseline
== END 2024-10-28 12:06 | disposition home or self-care (01) ==
PROVIDERS: PCP Family Medicine; Visit Provider Student in an Organized Health Care Education/Training Program
PROC: 0DJDXZZ Inspection of Lower Intestinal Tract, External Approach (ICD-10-PCS; CPT 46050; principal; 2024-10-28 12:05)
PROC: (CPT 46050; 2024-10-28 12:05)
DX: K61.0 Anal abscess (principal); G47.33 Obstructive sleep apnea (adult) (pediatric); E11.9 Type 2 diabetes mellitus without complications; I10 Essential (primary) hypertension; F32.9 Major depressive disorder, single episode, unspecified; G62.9 Polyneuropathy, unspecified; F17.210 Nicotine dependence, cigarettes, uncomplicated; Z79.4 Long term (current) use of insulin; Z79.84 Long term (current) use of oral hypoglycemic drugs; Z86.0100 Personal history of colon polyps, unspecified
CPT/HCPCS: 46050; 36416; 82962; 87070; 87075; 87077; 87186; 87205; A4216; J0690; J1100; J2250; J2704; J3010; J3490; J7030; J9999

== ENCOUNTER → 2024-11-09 10:01 | Outpatient (BNVA) | payer MEDICARE, MEDICAID, SELFPAY | PROVIDERS: PCP Family Medicine; Visit Provider Student in an Organized Health Care Education/Training Program | DX: K61.0 Anal abscess (principal) | CPT/HCPCS: 99024 ==

== ENCOUNTER → 2024-12-04 11:43 | Outpatient (BNVA) | payer MEDICARE, MEDICAID, SELFPAY | PROVIDERS: PCP Family Medicine; Visit Provider Family Medicine | DX: I10 Essential (primary) hypertension (principal); E11.9 Type 2 diabetes mellitus without complications | CPT/HCPCS: 80053; 80061; 83036; 85025 ==

== ENCOUNTER → 2024-12-07 08:03 | Outpatient (BNVA) | payer MEDICARE, MEDICAID, SELFPAY | PROVIDERS: PCP Family Medicine; Visit Provider Anesthesiology Pain Medicine | DX: M79.18 Myalgia, other site (principal); M47.816 Spondylosis without myelopathy or radiculopathy, lumbar region; M54.2 Cervicalgia; G89.29 Other chronic pain | CPT/HCPCS: 20553; 99214; J1010; J3490 ==

== ENCOUNTER 2024-12-15 09:18 | Day surgery (SDC) | payer MEDICARE, MEDICAID, SELFPAY ==
[2024-12-15 09:31] VITALS: BP 126/100; PULSE 127; RESP 18; TEMP 36.4; O2SAT 97
--- NOTE | 2024-12-15 09:59 | ANES.PREANE2 ---
Pre-Anesthetic Assessment Height/Weight: Height 1.98 m Weight 117.934 kg Temp Pulse Resp BP Pulse Ox O2 Del Method 97.5 F L 127 H 18 126/100 97 Room Air 12/15/24 09:31 12/15/24 09:31 12/15/24 09:31 12/15/24 09:31 12/15/24 09:31 12/15/24 09:31 Operation Date: 12/15/24 10:30 Proposed Procedures p EGD EGD with Biopsy 02800 [id number] G0121 Z12.11 R12(Not Applicable) - Bill Hdez MD s Colonoscopy(Not Applicable) - Bill Hdez MD Familial anesthetic complications: none Was Beta Sharif taken within 24 hours: N/A Was Clonidine taken within 24 hours: N/A Last intake: Intake Last Liquid Date 12/14/24 Last Liquid Time 21:00 Last Solid Date 12/13/24 Last Solid Time 20:00 Social Alcohol (30pack on the weekends) and Tobacco 1/2ppd pack(s) per day Exam alert and oriented x 3 Airway Submandibular: within normal limits Cervical ROM: within normal limits Mallampati: Class I Dentition: false (few teeth on bottom) History/ROS No significant history except as noted Pulmonary Sleep Apnea CV/HEM Hypertension None reported Hepatic None reported GI None reported Metabolic Diabetes Mellitus and Hyperlipidemia [facility] [place] None reported Neuropsych None reported Anesthetic Plan ASA status: 3 Anesthesia: Anesthesia Evaluation and MAC Risk of > 500 ml blood loss (7ml/kg in children): No Medications/Allergies Home Medications ?Medication ?Instructions ?Recorded ?Confirmed ?Last Taken ?Type sumatriptan succinate 100 mg 100 mg PO ONCE PRN migraine 02/28/22 12/10/24 2 Months Ago Rx tablet (Imitrex) headache #20 tabs ~10/09/24 CPAP 14 setting #1 ea 03/21/23 12/07/24 12/14/24 Rx CPAP mask, tubing, supplies #1 ea 03/21/23 12/07/24 12/14/24 Rx pen needle, diabetic 31 gauge x #100 ea 05/24/23 12/07/24 12/14/24 Rx 5/16 (TechLITE Pen Needle) rosuvastatin 10 mg tablet 10 mg PO QPM #90 tabs 04/16/24 12/10/24 12/14/24 Rx gabapentin 800 mg tablet 800 mg PO TID #300 tabs 09/14/24 12/10/24 12/14/24 Rx propranolol 40 mg tablet 40 mg PO BID #180 tabs 09/22/24 12/10/24 12/14/24 Rx amitriptyline 50 mg tablet 50 mg PO DAILY #90 tabs 09/23/24 12/10/24 12/14/24 Rx losartan 50 mg tablet 50 mg PO DAILY #90 tabs 10/26/24 12/10/24 12/14/24 Rx duloxetine 60 mg capsule,delayed 60 mg PO BEDTIME 10/27/24 12/10/24 12/14/24 History release glipizide 10 mg tablet 10 mg PO DAILY 10/27/24 12/10/24 12/14/24 History metformin 500 mg tablet,extended 1,000 mg (2 x 500 mg) PO BID #180 11/11/24 12/10/24 12/14/24 Rx release 24 hr tabs insulin glargine 100 unit/mL 50 unit (0.5 mL) SUBCUT DAILY #20 12/07/24 12/10/24 12/14/24 Rx subcutaneous solution (Lantus mL U-100 Insulin) blood-glucose sensor (FreeStyle #1 ea 12/10/24 12/14/24 Rx Sergio 3 Plus Sensor device) blood-glucose,public affairs director,cont #1 ea 12/10/24 12/14/24 Rx (FreeStyle Sergio 3 [place]) Allergies Allergy/AdvReac Type Severity Reaction Status Date / Time prednisone Allergy ALGY-Rash Verified 12/10/24 13:20 Current Medications Generic Name Dose Route Start Last Admin Trade Name Freq PRN Reason Stop Dose Admin Sodium Chloride 1,000 mls @ 15 mls/hr 12/15/24 09:24 12/15/24 09:39 Sodium Chloride 0.9% IV 12/16/24 09:23 15 mls/hr .Q24H PRN Administration COLONOSCOPY FLUIDS PFSH Anesthesia Medical History History of colon polyps Essential (primary) hypertension Major depressive disorder, recurrent, mild Psychiatric care Chronic migraine Sleep apnea, unspecified Mild intellectual disabilities Undifferentiated somatoform disorder Diabetes mellitus Neuropathy Surgical History Status post epidural steroid injection History of removal of cyst History of colonoscopy with polypectomy 2016 Family History Father CAD (coronary artery disease) Mother Clotting disorder Other Chronic kidney disease (CKD) Dementia Diabetes Hyperlipidemia Hypertension Lung disease Psychiatric illness Denies family history of Anesthesia complication Bleeding disorder Cancer Stroke Social History Smoking and tobacco/nicotine status: current every day tobacco/nicotine user cigarettes Packs smoked per day: 1 [ Other cigarette details: 1 PPD, 3/4PPD on avg, 35PY] Alcohol intake: current Alcohol intake frequency: few times a week Alcohol type: beer Substance/Drug Use: never Lives independently: Yes Marital status: Single Number of children: 0 Current occupational status: disabled Current gender identity: Male
--- NOTE | 2024-12-15 10:11 | W.PM.OPSFHP ---
Same Day Surgery H&P Indication for Procedure/HPI DATE OF PROCEDURE: December 15, 2024 CHIEF COMPLAINT/INDICATIONFOR SURGICAL PROCEDURE: heartburn, screening colonoscopy PREOP DIAGNOSIS: heartburn, screening colonoscopy PLANNED PROCEDURE: Operation Date: 12/15/24 10:30 Proposed Procedures p EGD EGD with Biopsy [id number] G0121 Z12.11 R12(Not Applicable) - Bill Hdez MD s Colonoscopy(Not Applicable) - Bill Hdez MD Medications/Allergies* Home Medications ?Medication ?Instructions ?Recorded ?Confirmed ?Type duloxetine 60 mg capsule,delayed 60 mg PO BEDTIME 10/27/24 12/10/24 History release glipizide 10 mg tablet 10 mg PO DAILY 10/27/24 12/10/24 History Allergies/Adverse Reactions Allergy/AdvReac Type Severity Reaction Status Date / Time prednisone Allergy ALGY-Rash Verified 12/10/24 13:20 Current Medications: Generic Name Dose Route Start Last Admin Trade Name Freq PRN Reason Stop Dose Admin Sodium Chloride 1,000 mls @ 15 mls/hr 12/15/24 09:24 12/15/24 09:39 Sodium Chloride 0.9% IV 12/16/24 09:23 15 mls/hr .Q24H PRN Administration COLONOSCOPY FLUIDS Pertinent History/Comorbid Conditions* Medical History (Updated 10/08/24 @ 13:56 by Bill Hdez MD) History of colon polyps Essential (primary) hypertension Major depressive disorder, recurrent, mild Psychiatric care Chronic migraine Sleep apnea, unspecified Mild intellectual disabilities Undifferentiated somatoform disorder Diabetes mellitus Neuropathy Surgical History (Updated 05/23/21 @ 10:40 by Wilmer Cuadra MD) Status post epidural steroid injection History of removal of cyst History of colonoscopy with polypectomy 2017 Family History (Updated 02/28/22 @ 13:15 by Celina Banks LPN) Diabetes CAD (coronary artery disease) Father Clotting disorder Mother Dementia Hyperlipidemia Psychiatric illness Chronic kidney disease (CKD) Lung disease Hypertension Denies family history of Anesthesia complication Bleeding disorder Cancer Stroke Social History Smoking and tobacco/nicotine status: current every day tobacco/nicotine user cigarettes Packs smoked per day: 1 [ Other cigarette details: 1 PPD, 3/4PPD on avg, 35PY] Alcohol intake: current Alcohol intake frequency: few times a week Alcohol type: beer Substance/Drug Use: never Lives independently: Yes Marital status: Single Number of children: 0 Current occupational status: disabled Current gender identity: Male Pertinent Exam Findings alert, oriented x 3, clear to auscultation bilaterally, regular rate & rhythm and procedure specific exam findings abdomen soft, nt, nd Recommendations Risks and benefits of procedure reviewed and Patient/family agree to proceed Surgery/Procedure today Coding Level of Care Code Acute Code for Chg Fwd
[2024-12-15 10:30] VITALS: BP 101/68; PULSE 115; RESP 18; TEMP 36.2; O2SAT 90
[2024-12-15 10:48] VITALS: BP 126/85; PULSE 98; RESP 16; O2SAT 94
--- NOTE | 2024-12-15 11:10 | ANE.PACU2 ---
Inpatient post-anesthesia follow up: Airway intact: Yes Vital signs: Temperature 97.1 F Pulse Rate 98 Respiratory Rate 16 Blood Pressure 126/85 Pulse Oximetry 94 Oxygen Delivery Me thod Room Air Oxygen Flow Rate Fraction of Inspir ed Oxygen Hydration adequate: Yes Nausea and vomiting: No Pain level: 1 Mental status: Baseline
== END 2024-12-15 11:10 | disposition home or self-care (01) ==
PROVIDERS: PCP Family Medicine; Visit Provider Student in an Organized Health Care Education/Training Program
PROC: 0DJ08ZZ Inspection of Upper Intestinal Tract, Via Natural or Artificial Opening Endoscopic (ICD-10-PCS; principal; 2024-12-15 10:30)
PROC: 0DJD8ZZ Inspection of Lower Intestinal Tract, Via Natural or Artificial Opening Endoscopic (ICD-10-PCS; CPT 45378; 2024-12-15 10:30)
DX: Z12.11 Encounter for screening for malignant neoplasm of colon (principal); R12 Heartburn; K29.70 Gastritis, unspecified, without bleeding; G47.30 Sleep apnea, unspecified; Z99.89 Dependence on other enabling machines and devices; I10 Essential (primary) hypertension; F32.9 Major depressive disorder, single episode, unspecified; E11.40 Type 2 diabetes mellitus with diabetic neuropathy, unspecified; F17.210 Nicotine dependence, cigarettes, uncomplicated; E78.5 Hyperlipidemia, unspecified; Z79.84 Long term (current) use of oral hypoglycemic drugs; Z79.4 Long term (current) use of insulin
CPT/HCPCS: 36416; 43239; 45378; 82962; 88305; J2704; J7030

== ENCOUNTER → 2024-12-28 11:18 | Outpatient (BNVA) | payer MEDICARE, MEDICAID, SELFPAY | PROVIDERS: PCP Family Medicine; Visit Provider Student in an Organized Health Care Education/Training Program | DX: Z09 Encounter for follow-up examination after completed treatment for conditions other than malignant neoplasm (principal) | CPT/HCPCS: 99213 ==

== ENCOUNTER → 2025-03-02 10:05 | Outpatient (BNVA) | payer MEDICARE, MEDICAID, SELFPAY | PROVIDERS: PCP Family Medicine; Visit Provider Anesthesiology Pain Medicine | DX: M79.18 Myalgia, other site (principal); M47.816 Spondylosis without myelopathy or radiculopathy, lumbar region; G89.29 Other chronic pain; M54.2 Cervicalgia; F17.210 Nicotine dependence, cigarettes, uncomplicated | CPT/HCPCS: 20553; 99214; J1010; J3490 ==